=== PATIENT | female | born 1995 ===

== ENCOUNTER 2017-08-23 06:12 | Inpatient (IN) ==
[2017-08-23] MEDS ORDERED: CALCIUM CARBONATE Chewable 500mg TABLET PO PRN (06:18)
[2017-08-23] MEDS ORDERED: LIDOCAINE 1% (10mg/ml) 2mL INJ PF SDV ID PRN (06:18)
[2017-08-23] MEDS ORDERED: ACETAMINOPHEN 500 MG TABLET PO PRN (06:18)
[2017-08-23] MEDS ORDERED: MAG-AL + SIM ORAL LIQUID 30ml PO PRN (06:18)
[2017-08-23] MEDS ORDERED: CARBOPROST 250 MCG/ML INJECTION IM PRN (06:18)
[2017-08-23] MEDS ORDERED: METHYLERGONOVINE 0.2 MG/ML INJECTION IM PRN (06:18)
--- OUTSIDE RECORDS SUMMARY | 2017-08-23 06:18 | External Medical Summary | Continuity of Care Document ---
:1995 Author Organization [email or web address] Address [address] [place], [place] [id number] Phone Care Team Providers Name Role Phone Romana Maher MD Unavailable Unavailable Allergies, Adverse Reactions, Alerts Substance Reaction Severity Status No Known Drug Allergies Unknown Active Medications Medication Instructions Dosage Effective Dates Status Comments (start - stop) Diclegis 10 mg-10 mg take 1 tablet by oral - Active tablet,delayed route every day in release the morning, 1 tablet in the mid-afternoon, and 2 tablets at bedtime Gummy 400 - Active mcg-35 mg-25 mg-5 mg chewable tablet Problems Condition Effective Dates (start - stop) Clinical Status Vomiting of , unspecified Vomiting of , unspecified Other viral diseases complicating - , first trimester Encntr for suprvsn of normal first - preg, first trimester 9 weeks gestation of - Other viral diseases complicating - , first trimester Encntr for suprvsn of normal first - preg, first trimester 13 weeks gestation of - Oth viral diseases complicating - , second trimester Encntr for suprvsn of normal first - preg, second trimester 19 weeks gestation of - Encntr for suprvsn of normal first - preg, second trimester 18 weeks gestation of - Herpes Simplex Virus Active Procedures Procedure Date Unknown Results Test Name Date and Time Measure Units Reference Range Abnormal Flag Comments Unknown Advance Directives Directive Yes / No Effective Date File Name Unknown Encounters Encounter Practice Location Reason(s) Diagnoses Date Provider Care Team Description For Visit [facility] [place] viral Dec-1 Arlette Referring In Womens diseases 8-201 Kaykay. Provider: Gilberto SUTTON, complicating 7 [address] , Medical Arlette L, 1522, second Center [address] [place], trimesterEncntr Romel Castro, for suprvsn of 120, Center [id number], normal first Vance, Romel 120, [place] preg, second Vance PAUL, tel:[phone] [place], weeks gestation , [place]. [id number]. of tel: tel:[phone] Gary [place] Encntr for Dec-1 Suki Referring In Womens Ultrasound suprvsn of 8-201 Alondra. Provider: Gilberto SUTTON, normal first 7 700 [address] preg, second Medical Arlette L, 1522, [email or web address] Center [address], weeks gestation Romel Castro, of 120, Center , Vance [facility] 120, [place] Vance PAUL, tel:[phone] [place], , [place]. [id number]. tel: tel:[phone] Gary [place] Dec- Arlette Referring In Womens 4-201 Kaykay. Provider: Gilberto SUTTON, 7 700 [address] Medical Arlette L, 1522, Center [facility] Radha, Romel Castro, 120, Center [id number], Vance Romel 120, [place] Vance PAUL, tel:[phone] [place], , [place]. [id number]. tel: tel:[phone] Gary [place] Other viral Nov-1 Arlette Referring In Womens diseases 3-201 Kaykay. Provider: Gilberto SUTTON, complicating 7 [address] , first Medical Arlette L, 1522, trimesterEncntr Center [address] [place] [address], for suprvsn of Romel Castro, normal first 120, Center [id number], preg, first Vance Romel 120, US [id number] Vance PAUL, tel:[phone] weeks gestation [phone] [place], of , [place]. [id number]. tel: tel: [phone] [facility] [place] Other viral Oct- Arlette Referring In Womens diseases Kaykay. Provider: Health LESLEY, complicating 7 [address] , first Medical Arlette L, 1522, trimesterEncntr Center [address] [place] [address], for suprvsn of [facility], normal first 120, Center [id number], preg, first [place], [facility] 120, [place] trimester9 weeks Vance PAUL, tel: gestation of [phone] [place], , [place]. [id number]. tel: tel: [phone] [facility] [place] Vomiting of Sep-2 Sobbing In Womens , Laith. Health LESLEY, unspecified 7 700 [address] Medical [address], [place], [place], [address] , 120, [place] V[place], tel: [place], [address], [place]. tel: [phone] Gary [place] Vomiting of Sep-2 Suki In Womens , Alondra. Health LESLEY, unspecified 7 700 [address] Medical [address], [place], [facility], 120, [id number], [place], tel: [phone] , [place]. tel: [phone] Family History Family Member Diagnosis Age At Onset Mother Diabetes Maternal Grandmother Ovarian Cancer Maternal Grandmother Thyroid Disorder Maternal Grandmother Breast Cancer Mother Thyroid Disorder Maternal Grandfather Colon Cancer Immunizations Vaccine Date Status Comments Influenza, seasonal, injectable, completed Source: Other Provider preservative free, 3 yrs or older Payers Payer name Insurance type Covered alliance party ID Authorization(s) [facility] CI [id number] Social History Type Description Quantity Date Captured Alcohol Use Details No Caffeine Use Details Unknown Tobacco Use Status Smoking Status Former smoker Vital Signs Date / Height Weight BMI Pulse Blood Temperature Respiratory Body Head BMI Time: Rate Pressure Rate Surface Circumference percentile Area Unknown Chief Complaint And Reason For Visit Unknown Chief Complaint And Reason For Visit Reason For Referral Reason For Referral Unknown Plan Of Care Date Type Action Status Appointment DeangelotanyaRania BOOKED Future Order: Radiology Order Complete OB Ultrasound > 14 Ordered Weeks ([id number]) Date Type Problem Goal Intervention Status Start Date Unknown. History Of Present Illness Encounter Date Complaint History Of Present Illness This patient has no known history of present illness Functional Status Encounter Date Functional Assessment Cognitive Assessment Unknown Medications Administered Medication Instructions Dosage Effective Dates (start - stop) Status Comments Drug Treatment Unknown Instructions Date Instruction Additional Information HIV and other routine tests risk factors identified by history anticipated course of care nutrition and weight gain counseling, special diet toxoplasmosis precautions (cats / raw meat) sexual activity exercise indications for ultrasound influenza vaccine environmental / work hazards travel use of any medications (including supplements, vitamins, herbs, OTC drugs) domestic violence seat belt use childbirth classes / hospital facilities hospital registration genetic testing new ob handbook Zika virus assessment & precautions
--- OUTSIDE RECORDS SUMMARY | 2017-08-23 06:18 | External Medical Summary | Continuity of Care Document ---
:1993 Author Organization [facility] Address [address] [place], [place] [phone] Phone Care Team Providers Name Role Phone [...] of , unspecified Vomiting of , unspecified Procedures Procedure Date Office/outpatient visit,[facility] Results Test Name Date and Time Measure Units Reference Range Abnormal Flag Comments Unknown Advance Directives Directive Yes / No Effective Date File Name Unknown Encounters Encounter Practice Location Reason(s) Diagnoses Date Provider Care Team Description For Visit Members [facility] [place] Vomiting of Sobbing [facility] , Laith. PA, [address] unspecified [address], [place], [place], Center [id number], [place] [address], tel:[phone] [address], [address] [place] [address], [address], [place]. tel:[phone] Office/outpati [facility] [place] nausea and Vomiting of Suki ent visit,[facility], [facility] vomiting , -2016 Alondra. lanette PA, [address] with unspecified [address], [place], [place], (chief Center , [id number], complaint) Romel 120, tel:[phone] [address], [id number], . tel:[phone] Family History Family Member Diagnosis Age At Onset Mother Diabetes Maternal Grandmother Ovarian Cancer Maternal Grandmother Thyroid Disorder Maternal Grandmother Breast Cancer Mother Thyroid Disorder Maternal Grandfather Colon Cancer Immunizations Vaccine Date Status Comments Influenza, seasonal, injectable, completed Source: Other Provider preservative free, 3 yrs or older Payers Payer name Insurance type Covered libertarian ID Authorization(s) [facility] [id number] Social History Type Description Quantity Date Captured Alcohol Use Details Caffeine Use Details combo Tobacco Use Status Never smoked tobacco Smoking Status Former smoker Non-Smoking Tobacco Use : No Details Available : No Details Available Details Vital Signs Date / Height Weight BMI Pulse Blood Temperature Respiratory Body Head BMI Time: Rate Pressure Rate Surface Circumference percentile Area 67.00 245.10 38.3 74 124/77 2017 in lbs 9 /min mm[Hg] 9:38 kg/m AM eter (2) Chief Complaint And Reason For Visit Unknown Chief Complaint And Reason For Visit Reason For Referral Reason For Referral Unknown Plan Of Care Date Type Action Status Appointment Raina Kolb BOOKED Date Type Problem Goal Intervention Status Start Date Unknown. History Of Present Illness Encounter Date Complaint History Of Present Illness nausea and vomiting with Pt reports she vomits approximately 4x/day and gags in between. Able to keep food down in between. Doesn't feel dehydrated. Hasn't lost weight. LMP 7/3. + preg test 2 weeks ago. Periods very irregular-every 1-4 months. Faint spotting x 1 last week. Plans to see Dr Chong for . Also had lots of N/V in her 1st 2 pregnancies. Functional Status Encounter Date Functional Assessment Cognitive Assessment Unknown Medications Administered Medication Instructions Dosage Effective Dates (start - stop) Status Comments Drug Treatment Unknown Instructions Date Instruction Additional Information Unknown
--- OUTSIDE RECORDS SUMMARY | 2017-08-23 06:18 | External Medical Summary | Continuity of Care Document ---
:1993 Author Organization [facility] Address [address] [place], [place] [phone] Phone Care Team Providers Name Role Phone [...] Effective Dates (start - stop) Clinical Status Encntr for suprvsn of normal first - preg, second trimester 18 weeks gestation of - Vomiting of , unspecified Vomiting of , [...] second trimester 19 weeks gestation of - Herpes Simplex Virus Active Procedures Procedure Date Ultrasound exam of preg uterus, complete Results Test Name Date and Time Measure Units Reference Range Abnormal Flag Comments Unknown Advance Directives Directive Yes / No Effective Date File Name Unknown Encounters Encounter Practice Location Reason(s) Diagnoses Date Provider Care Team Description For Visit Members [facility] [place] Oth viral Dec-1 Arlette Referring In Womens diseases 8-201 Kaykay. Provider: Gilberto SUTTON, complicating 7 [address] , Medical Arlette L, 1522, second Center 700 [place], trimesterEncntr Romel Castro, for suprvsn of 120, Center [id number], normal first Romel [place] 120, [place] preg, second Vance PAUL, tel:[phone] [id number] [phone] [place], weeks gestation , [place]. [id number]. of tel: tel:[phone] [facility] Encfritz for Dec-1 Suki Referring In Womens Ultrasound suprvsn of 8-201 Alondra. Provider: Gilberto SUTTON, normal first 7 700 [address] preg, second Medical Arlette L, 1522, Center 700 [place], weeks gestation Romel Castro, of 120, Center [id number], Vance [facility] 120, [place] Vance PAUL, tel:[phone] [place], , [place]. [id number]. tel: tel:[phone] Gary [place] Other viral Nov-1 Arlette Referring In Womens diseases 3-201 Kaykay. Provider: Gilberto SUTTON, complicating 7 700 [address] , first Medical Arlette L, 1522, trimesterEncntr Center [address] [place] [address], for suprvsn of Romel Castro, normal first 120, Center [id number], preg, first Vance [facility] 120, [place] [id number] Vance PAUL, tel:[phone] weeks gestation [phone] [place], of , [place]. [id number]. tel: tel:[phone] Gary [place] Other viral Oct-1 Arlette Referring In Womens diseases 7-201 Kaykay. Provider: Gilberto SUTTON, complicating 7 700 [address] , first Medical Arlette L, 1522, trimesterEncntr Center [address] [place] [address], for suprvsn of Romel Castro, normal first 120, Center [id number], preg, first [place], [facility] 120, [place] trimester9 weeks Vance PAUL, tel: gestation of [phone] [place], , [place]. [id number]. tel: tel: [phone] [facility] Vomiting of Sep-2 Sobbing In Womens , Laith. Health [place], unspecified 7 700 [address] Medical [address], [facility], [place], [address] [id number], 120, [place], [place]: [place], [address], [place]. tel: [phone] [facility] [place] Vomiting of Sep-2 Suki In Womens , Alondra. Health [place], unspecified 7 700 PO [address] Medical [address], [place] Radha, , Romel [place], 120, [id number], [place], [place], tel: [phone] , [place]. tel: [phone] Family History Family Member Diagnosis Age At Onset Mother Diabetes Maternal Grandmother Ovarian Cancer Maternal Grandmother Thyroid Disorder Maternal Grandmother Breast Cancer Mother Thyroid Disorder Maternal Grandfather Colon Cancer Immunizations Vaccine Date Status Comments Influenza, seasonal, injectable, completed Source: Other Provider preservative free, 3 yrs or older Payers Payer name Insurance type Covered green party ID Authorization(s) [facility] CI [id number] Social History Type Description Quantity Date Captured Unknown Vital Signs Date / Height Weight BMI Pulse Blood Temperature Respiratory Body Head BMI Time: Rate Pressure Rate Surface Circumference percentile Area Unknown Chief Complaint And Reason For Visit Unknown Chief Complaint And Reason For Visit Reason For Referral Reason For Referral Unknown Plan Of Care Date Type Action Status Appointment Raina Kolb BOOKED Future Order: Radiology Order Complete OB Ultrasound > 14 Ordered Weeks ([id number]) Date Type Problem Goal Intervention Status Start [...]
--- OUTSIDE RECORDS SUMMARY | 2017-08-23 06:18 | External Medical Summary | Continuity of Care Document ---
:1993 Author Organization [facility] Address [address] [place], [place] [phone] Phone Care Team Providers Name Role Phone [...] stop) Clinical Status Vomiting of , unspecified Procedures Procedure Date Office/outpatient visit,[facility] Results Test Name Date and Time Measure Units Reference Range Abnormal Flag Comments Unknown Advance Directives Directive Yes / No Effective Date File Name Unknown Encounters Encounter Practice Location Reason(s) Diagnoses Date Provider Care Team Description For Visit Members Office/outpati [facility] [place] N/V with Vomiting of Sobbing ent visit,[facility] , -2016 Laith. lanette SUTTNO, [address] (chief unspecified [address], complaint) [place] [id number], [place] [address], tel:[phone] [address], [address] [place], [address], [place]. tel:[phone] [facility] [place] [facility] -2016 Alondra. LESLEY, [address], [place], [place], [address], [id number], [place] Romel 120, tel:[phone] [address], [id number], [place]. tel:[phone] Family History Family Member Diagnosis Age At Onset Mother Diabetes Maternal Grandmother Ovarian Cancer Maternal Grandmother Thyroid Disorder Maternal Grandmother Breast Cancer Mother Thyroid Disorder Maternal Grandfather Colon Cancer Immunizations Vaccine Date Status Comments Influenza, seasonal, injectable, completed Source: Other Provider preservative free, 3 yrs or older Payers Payer name Insurance type Covered alliance party ID Authorization(s) [facility] [id number] Social History Type Description Quantity Date Captured Alcohol Use Details Caffeine Use Details combo Tobacco Use Status Never smoked tobacco Smoking Status Former smoker Vital Signs Date / Height Weight BMI Pulse Blood Temperature Respiratory Body Head BMI Time: Rate Pressure Rate Surface Circumference percentile Area Unknown Chief Complaint And Reason For Visit Most recent encounter only, dated '01/16/2017 09:55'. N/V with (chief complaint). Description: Pt here with c/o of N/V with . Vomits about 4 x /day and gags in between. Is able to keep food down in between and hasn't lost weight. LMP 7/3, but really not sure and periods very irregular- usually ever 1-4 months. Had positive pregtest 2 weeks ago. Very faint spotting x 1 last week. Had pelvic pain once 2 weeks ago, none since. Plans to see Dr Chong with . Reason For Referral Reason For Referral Unknown Plan Of Care Date Type Action Status Appointment Raina Kolb BOOKED Date Type Problem Goal Intervention Status Start Date Unknown. History Of Present Illness Encounter Date Complaint History Of Present Illness N/V with Pt here with c/o of N/V with . Vomits about 4 x /day and gags in between. Is able to keep food down in between and hasn't lost weight. LMP 7/3, but really not sure and periods very irregular- usually ever 1-4 months. Had positive preg test 2 weeks ago. Very faint spotting x 1 last week. Had pelvic pain once 2 weeks ago, none since. Plans to see Dr Chong with . Functional Status Encounter Date Functional Assessment Cognitive Assessment Unknown Medications Administered Medication Instructions Dosage Effective Dates (start - stop) Status Comments Drug Treatment Unknown Instructions Date Instruction Additional Information Unknown
--- OUTSIDE RECORDS SUMMARY | 2017-08-23 06:18 | External Medical Summary | Continuity of Care Document ---
:1993 Author Organization [facility] Address [address] [place], [place] [phone] Phone Care Team Providers Name Role Phone [...] of , unspecified Procedures Procedure Date Office/outpatient visit,[facility] OB US < 14 WKS, SINGLE FETUS Office/outpatient visit,[facility] Results Test Name Date and Time Measure Units Reference Range Abnormal Flag Comments Unknown Advance Directives Directive Yes / No Effective Date File Name Unknown Encounters Encounter Practice Location Reason(s) Diagnoses Date Provider Care Team Description For Visit Members Office/outpati [facility] [place] N/V with Vomiting of Sep-25 Sobbing ent visit,[facility] , Laith. lanette SUTTON [address] (chief unspecified [phone], complaint) [facility] [id number], [place] [address], tel:[phone] [address], [address] [place], [address], [place]. tel:[phone] [facility] [place] Vomiting of Sep-25 Suki [facility] , Alondra. LESLEY [address] unspecified [address], [facility] [address] [id number], Romel 120, tel:[phone] Genoveva [place], [id number], [place]. tel:[phone] Family History Family Member Diagnosis Age At Onset Mother Diabetes Maternal Grandmother Ovarian Cancer Maternal Grandmother Thyroid Disorder Maternal Grandmother Breast Cancer Mother Thyroid Disorder Maternal Grandfather Colon Cancer Immunizations Vaccine Date Status Comments Influenza, seasonal, injectable, completed Source: Other Provider preservative free, 3 yrs or older Payers Payer name Insurance type Covered alliance party ID Authorization(s) [facility] CI [id number] Social History Type Description Quantity Date Captured [...] Plans to see Dr Chong with . Had lots of N/V with 1st 2 pregnancies as well. Reason For Referral Reason For Referral Unknown [...] Plans to see Dr Chong with . Had lots of N/V with 1st 2 pregnancies as well. Functional Status Encounter Date Functional Assessment Cognitive Assessment Unknown Medications Administered Medication Instructions Dosage Effective Dates (start - stop) Status Comments Drug Treatment Unknown Instructions Date Instruction Additional Information Unknown
--- OUTSIDE RECORDS SUMMARY | 2017-08-23 06:18 | External Medical Summary | Continuity of Care Document ---
:1995 Author Organization [facility] Address [address] [place], [place] [address] Phone Care Team Providers Name Role Phone Romana Maher MD Unavailable Unavailable Allergies, Adverse Reactions, Alerts Substance Reaction Severity Status No Known Drug Allergies Unknown Active Medications Medication Instructions Dosage Effective Dates Status Comments (start - stop) acyclovir 400 mg take 1 tablet by ORAL 400 MG - Active tablet route 3 times every day Diclegis 10 mg-10 mg take 1 tablet by oral - Active tablet,delayed route every day in release the morning, 1 tablet in the mid-afternoon, and 2 tablets at bedtime Gummy 400 - Active mcg-35 mg-25 mg-5 mg chewable tablet Tylenol 325 mg tablet take 3 tablet by ORAL 975 MG - Active route every 4 days as needed Problems Condition Effective Dates (start - stop) Clinical Status Encounter for suprvsn of normal - , third trimester 30 weeks gestation of - Vomiting of , unspecified Vomiting of , unspecified Encounter for suprvsn of normal - , third trimester 32 weeks gestation of - Other malformation of placenta, second - trimester Encounter for suprvsn of normal - , second trimester 24 weeks gestation of - Other malformation of placenta, third - trimester Other antepartum hemorrhage, third - trimester 28 weeks gestation of - Other viral diseases [...] second trimester 18 weeks gestation of - Encounter for suprvsn of normal - , third trimester 28 weeks gestation of - Herpes Simplex Virus Active Procedures Procedure Date OB Visit No Charge Results Test Name Date and Time Measure Units Reference Range Abnormal Flag Comments Unknown Advance Directives Directive Yes / No Effective Date File Name Unknown Encounters Encounter Practice Location Reason(s) Diagnoses Date Provider Care Team Description For Visit Members Gary [place] Encounter for Jun- Arlette Referring In Women suprvsn of normal 4-201 Kaykay. Provider: Health LESLEY, , third 8 700 Kaykay [address] [email or web address] weeks Medical Arlette L, 1522, gestation of Center [facility] [place], [facility], 120, [place] [id number], [facility] 120, Vance PAUL, tel:[phone] [place] [address] , . [id number]. tel: tel:[phone] Gary [place] Encounter for May- Arlette Referring In Womens suprvsn of normal 8-201 Kaykay. Provider: Health LESLEY, , third 8 700 Kaykay [address] [email or web address] weeks Medical Arlette L, 1522, gestation of Center 700 [place], Romel Castro [place], 120, [place] [id number], [facility] 120, [place] Vance [place], tel:[phone] [place] [address] , . [id number]. tel: tel:[phone] Gary [place] Encounter for May- Arlette Referring In Womens suprvsn of normal 4-201 Kaykay. Provider: Health LESELY, , third 8 700 Kaykay [address] [email or web address] weeks Medical Arlette L, 1522, gestation of Center [address] [place] [address], Romel Castro, 120, Center [id number], [place], [facility] 120, [place] Vance [place], tel:[phone] [place], , [place]. [id number]. 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 Provider: Health LESLEY, placenta, third 8 700 Kaykay PO Box trimesterOther Medical Arlette L, 1522, antepartum Center [address] [place] [address], hemorrhage, third Romel Castro, [email or web address] weeks 120, Center [id number], gestation of [place], [facility] 120, [place] RIVance, tel:[phone] [place], , [place]. [id number]. tel: tel:[phone] [facility] Other Jorge L- Arlette Referring In Womens malformation of 7-201 Kaykay. Provider: Gilberto SUTTON, placenta, second 8 700 Kaykay PO Box trimesterEncounte Medical Arlette L, 1522, r for suprvsn of Center [address] [place] [address], normal , Romel Castro, second 120, Center [id number], [email or web address] weeks [place], [facility] 120, [place] gestation of Vance PAUL, tel:+ [phone] [place], , [place]. [id number]. tel: tel:[phone] [facility] Oth viral Dec- Arlette Referring In Womens diseases 8-201 Kaykay. Provider: Gilberto SUTTON, complicating 7 700 Kaykay PO Box , second Medical Arlette L, 1522, trimesterEncntr Center [address] [place] [address], for suprvsn of Romel Castro, normal first 120, Center [id number], preg, second [place], [facility] 120, [place] [email or web address] weeks Vance PAUL, tel:[phone] gestation of [phone] [place], , [place]. [id number]. tel: tel:[phone] [facility] Encntr for Dec-1 Suki Referring In Womens Ultrasound suprvsn of normal 8-201 Alondra. Provider: Health LESLEY, first preg, 7 700 Kaykay PO Box second Medical Arlette L, 1522, [email or web address] weeks Center [address] [place] [address], gestation of Romel Castro, 120, Center [id number], Vance, [facility] 120, [place] Vance PAUL, tel:[phone] [place], , [place]. [id number]. tel: tel:[phone] [facility] Other viral Nov-1 Arlette Referring In Womens diseases 3-201 Kaykay. Provider: Gilberto SUTTON, complicating 7 700 Kaykay PO Box , first Medical Arlette L, 1522, trimesterEncntr Center [address] [place] [address], for suprvsn of Romel Castro, normal first 120, Center [id number], preg, first Vance [facility] 120, [place] [email or web address] weeks Vance PAUL, tel:+ gestation of [phone] [place], , [place]. [id number]. tel: tel:[phone] [facility] Other viral Oct-1 Arlette Referring In Womens diseases 7-201 Kaykay. Provider: Gilberto SUTTON, complicating 7 700 Kaykay PO Box , first Medical Arlette L, 1522, trimesterEncntr Center [address] [place] [address], for suprvsn of Romel Castro, normal first 120, Center [id number], preg, first Vance, [facility] 120, [place] trimester9 weeks Vance PAUL, tel:+[phone] gestation of [phone] [place], , [place]. [id number]. tel: tel:[phone] [facility] Vomiting of Sep-2 Sobbing In Womens , 5-201 Laith. Health LESLEY, unspecified 7 700 [address] Medical 1522, [facility], [place], [address] [id number], 120, [place] Vance, tel:+ [place], [phone] [place] [address], [place]. tel: [phone] [facility] [place] Vomiting of Sep-2 Suki In Womens , 5-201 Alondra. Health [place], unspecified 7 700 PO [place] [facility] [address], [place] [address] Radha, [facility] [place], 120, [id number], [place], tel: [phone] , [place]. tel: [phone] Family History Family Member Diagnosis Age At Onset Mother Diabetes Maternal Grandmother Ovarian Cancer Maternal Grandmother Thyroid Disorder Maternal Grandmother Breast Cancer Mother Thyroid Disorder Maternal Grandfather Colon Cancer Immunizations Vaccine Date Status Comments Influenza, seasonal, injectable, completed Source: Other Provider preservative free, 3 yrs or older Payers Payer name Insurance type Covered republican ID Authorization(s) [facility] [id number] [employer] [place] [employer] - Medicaid [place] [id number] Social History Type Description Quantity Date Captured [...] Of Care Date Type Action Status Appointment Carissa Kolb BOOKED Future Order: Radiology Order Ultrasound OB Follow-up ([id number]) Ordered Future Order: Radiology Order Complete OB Ultrasound > 14 Ordered Weeks ([id number]) Date Type Problem Goal Intervention Status Start [...]
--- OUTSIDE RECORDS SUMMARY | 2017-08-23 06:18 | External Medical Summary | Continuity of Care Document ---
:1993 Author Organization [facility] Address [address] [place], [place] [id number] Phone Care Team Providers Name Role Phone [...] of , unspecified Procedures Procedure Date Office/outpatient visit,[facility] Results Test Name Date and Time Measure Units Reference Range Abnormal Flag Comments Unknown Advance Directives Directive Yes / No Effective Date File Name Unknown Encounters Encounter Practice Location Reason(s) Diagnoses Date Provider Care Team Description For Visit Members [facility] Vomiting of Sobbing [facility] , Laith. [place], [address] unspecified [address] 1522, [place], [place], Center [id number], [place] [address], tel:[phone] [address], [address] [place] [address], [address], [place]. tel:[phone] Office/outpati [facility] [place] nausea and Vomiting of Suki ent visit,[facility], [facility] vomiting , -2016 Alondra. lanette [place], [address] with unspecified 700 1522, [place], [place], (chief Center , [id number], complaint) Romel 120, tel:[phone], [id number], . tel:[phone] Family History Family Member Diagnosis Age At Onset Mother Diabetes Maternal Grandmother Ovarian Cancer Maternal Grandmother Thyroid Disorder Maternal Grandmother Breast Cancer Mother Thyroid Disorder Maternal Grandfather Colon Cancer Immunizations Vaccine Date Status Comments Influenza, seasonal, injectable, completed Source: Other Provider preservative free, 3 yrs or older Payers Payer name Insurance type Covered alliance party ID Authorization(s) [facility] [id number] Social History Type Description Quantity Date Captured [...] . Also had lots of N/V in he r1st 2 pregnancies. Functional Status Encounter Date Functional Assessment Cognitive Assessment Unknown Medications Administered Medication Instructions Dosage Effective Dates (start - stop) Status Comments Drug Treatment Unknown Instructions Date Instruction Additional Information Unknown
--- OUTSIDE RECORDS SUMMARY | 2017-08-23 06:18 | External Medical Summary | Continuity of Care Document ---
:1993 Author Organization [facility] Address [address] [place], [place] [address] Phone Care Team Providers Name Role Phone Romana Maher MD Unavailable Unavailable Allergies, Adverse Reactions, Alerts Substance Reaction Severity Status No Known Drug Allergies Unknown Active Medications Medication Instructions Dosage Effective Dates Status Comments (start - stop) Diclegis 10 mg-10 take 1 tablet by - Active mg tablet,delayed oral route every release day in the morning, 1 tablet in the mid-afternoon, and 2 tablets at bedtime Gummy 400 - Active mcg-35 mg-25 mg-5 mg chewable tablet Tamiflu 75 mg take 1 capsule by 75 MG - No Longer capsule oral route 2 times Active every day Problems Condition Effective Dates (start - stop) Clinical Status Vomiting of , unspecified Vomiting of , unspecified Other malformation of placenta, second - trimester [...] For Visit Members Gary [place] Encounter for May- Arlette Referring In Womens suprvsn of normal 4-201 Kaykay. Provider: Gilberto SUTTON, , third 8 700 Kaykay [address] [email or web address] weeks Medical Arlette L, 1522, gestation of [address], [address] [facility] Kriss [place], 120, [place] , [facility], [place] Vance [place], tel:[phone] [place], , [place]. [id number]. tel: tel: [phone] Gary [place] Other May- Arlette Referring In Womens Ultrasound malformation of 4-201 Kaykay. Provider: Gilberto SUTTON, placenta, third 8 700 Kaykay PO Box trimesterOther Medical Arlette L, 1522, antepartum Center [address] [place] [address], hemorrhage, third Dr [facility] Kriss [place], [email or web address] weeks 120, [place] , gestation of [facility] 120, [place] Vance PAUL, tel:[phone] [place], , [place]. [id number]. tel: tel: [phone] Gary [place] Jorge L-3 Arlette In Womens 0-201 Kaykay. Gilberto SUTTON, 8 700 PO [address] Medical 1522, Center Rad[place], [facility] [place], 120, [id number], [place], tel:[phone] , [place]. tel: [phone] Gary [place] Apr-1 Arlette Referring In Womens malformation of 7-201 Kaykay. Provider: Gilberto SUTTON, placenta, second 8 700 Kaykay PO Box trimesterEncounte Medical Arlette L, 1522, r for suprvsn of Center [address] [place] [address], normal , Romel Castro, second 120, Center , [email or web address] weeks Vance Romel 120, [place] gestation of Vance PAUL, tel:+ [phone] [place], , [place]. [id number]. tel: tel:[phone] Gary [place] Oth viral Dec-1 Arlette Referring In Womens diseases 8-201 Kaykay. Provider: Gilberto SUTTON, complicating 7 700 Kaykay PO Box , second Medical Arlette L, 1522, trimesterEncntr Center [address] [place] [address], for suprvsn of Romel Castro, normal first 120, Center , preg, second [place], Romel 120, [place] [email or web address] weeks Vance PAUL, tel: gestation of [phone] [place], , [place]. [id number]. tel: tel:[phone] Gary [place] Encntr for Dec-1 Suki Referring In Womens Ultrasound suprvsn of normal 8-201 Alondra. Provider: Gilberto SUTTON, first preg, 7 700 [place] PO Box second Medical Arlette L, 1522, [email or web address] weeks Center [address] [place] [address], gestation of Romel Castro, 120, Center [id number], [place], Romel 120, [place] Vance PAUL, tel: [phone] [place], , [place]. [id number]. tel: tel:[phone] Gary [place] Other viral Nov-1 Arlette Referring In Womens diseases 3-201 Kaykay. Provider: Gilberto SUTTON, complicating 7 700 Kaykay PO Box , first Medical Arlette L, 1522, trimesterEncntr Center [address] [place] [address], for suprvsn of Romel Castro, normal first 120, Center [id number], preg, first [place] Romel 120, [place] [email or web address] weeks Vance PAUL, tel:+[phone] gestation of [place], , [place]. [id number]. tel: tel: [phone] [facility] Other viral Oct- Arlette Referring In Womens diseases - Kaykay. Provider: Gilberto SUTTON, complicating 7 700 Kaykay PO Box , first Medical Arlette L, 1522, trimesterEncntr Center [address] [place] [address], for suprvsn of , [facility], normal first 120, [place] [id number], preg, first [place], [facility] 120, [place] trimester9 weeks Vance PAUL, tel: gestation of [phone] [place], , [place]. [id number]. tel: tel: [phone] [facility] Vomiting of Sep-2 Sobbing In Womens , - Laith. Gilberto SUTTON, unspecified 7 700 [address] Medical 1522, [place], [place], Suite , 120, [place], tel: [place], [address], [place]. tel: [phone] [facility] Vomiting of Sep-2 Suki In Womens , - Alondra. Gilberto SUTTON, unspecified [address] [facility] 1522, [place] Radha, [facility], 120, [id number], [place], [facility], tel: [phone] , [place]. tel: [phone] Family History Family Member Diagnosis Age At Onset Mother Diabetes Maternal Grandmother Ovarian Cancer Maternal Grandmother Thyroid Disorder Maternal Grandmother Breast Cancer Mother Thyroid Disorder Maternal Grandfather Colon Cancer Immunizations Vaccine Date Status Comments Influenza, seasonal, injectable, completed Source: Other Provider preservative free, 3 yrs or older Payers Payer name Insurance type Covered constitution party ID Authorization(s) [facility] [id number] [employer] [place] [employer] - Medicaid MC [id number] Social History Type Description Quantity Date Captured Unknown Vital Signs Date / Height Weight BMI Pulse Blood Temperature Respiratory Body Head BMI Time: Rate Pressure Rate Surface Circumference percentile Area Unknown Chief Complaint And Reason For Visit Unknown Chief Complaint And Reason For Visit Reason For Referral Reason For Referral Unknown Plan Of Care Date Type Action Status Feb-28-2018 Appointment Carissa Kolb BOOKED Appointment Carissa Kolb BOOKED Appointment Carissa Kolb BOOKED Future Order: Radiology Order Ultrasound OB Follow-up ([id number]) Ordered Future Order: Radiology Order Complete OB Ultrasound > 14 Ordered Weeks ([id number]) Date Type Problem Goal Intervention Status Start [...]
--- OUTSIDE RECORDS SUMMARY | 2017-08-23 06:19 | External Medical Summary | Continuity of Care Document ---
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 Panel Description: OBSTETRIC PANEL WHITE BLOOD CELL 8.0 Thousand/uL 3.8-10.8 N COUNT 11:23:00 RED BLOOD CELL 4.67 Million/uL 3.80-5.10 N COUNT 11:23:00 HEMOGLOBIN 12.7 g/dL 11.7-15.5 N 11:23:00 HEMATOCRIT 38.5 % 35.0-45.0 N 11:23:00 MCV 82.4 fL 80.0-100.0 N 11:23:00 MCH 27.2 pg 27.0-33.0 N 11:23:00 MCHC 33.0 g/dL 32.0-36.0 N 11:23:00 RDW 13.4 % 11.0-15.0 N 11:23:00 PLATELET COUNT 138 Thousand/uL 140-400 L 11:23:00 MPV 12.0 fL 7.5-12.5 N 11:23:00 ABSOLUTE 5720 cells/uL 0445-4831 N NEUTROPHILS 11:23:00 ABSOLUTE 1664 cells/uL 850-3900 N LYMPHOCYTES 11:23:00 ABSOLUTE 528 cells/uL 200-950 N MONOCYTES 11:23:00 ABSOLUTE 56 cells/uL 15-500 N EOSINOPHILS 11:23:00 ABSOLUTE 32 cells/uL 0-200 N BASOPHILS 11:23:00 NEUTROPHILS 71.5 % N 11:23:00 LYMPHOCYTES 20.8 % N 11:23:00 MONOCYTES 6.6 % N 11:23:00 EOSINOPHILS 0.7 % N 11:23:00 BASOPHILS 0.4 % N 11:23:00 ANTIBODY SCREEN, NO ANTIBODIES N RBC W/REFL ID, 11:23:00 DETECTED Reference range TITER AND AG No antibodies detected This assay is a screening test for the detection of red blood cell antibodies. The test is not to be used for pretransfusion screening or for the medical management of an alloimmunized . ABO GROUP A 11:23:00 RH TYPE RH(D) 11:23:00 POSITIVE RPR (DX) W/REFL NON-REACTIVE NON-REACTIV N TITER AND 11:23:00 E CONFIRMATORY TESTING HEPATITIS B NON-REACTIVE NON-REACTIV N SURFACE ANTIGEN 11:23:00 E RUBELLA ANTIBODY 3.34 index N Index (IGG) 11:23:00 Interpretation ----- <0.90 Not consistent with Immunity 0.90-0.99 Equivocal > or=1.00 Consistent with Immunity The presence of rubella IgG antibody suggests immunization or past or current infection withrubella virus.[place] [address]Wizhteo r: GARRISON STEPHENSON DO,MPH Panel Description: HIV 1/2 ANTIGEN/ANTIBODY,FOURTH GENERATION W/RFL HIV NON-REACTIVE NON-REACTIVE N HIV-1 antigen and HIV-1/HIV- 2 antibodies were AG/AB, 11:23:00 notdetected. There is no laboratory evidence of 4TH GEN HIVinfection. PLEASE NOTE: This information has been disclosed toyou from records whose confidentiality may beprotected by state law. If your state requires suchprotection, then the state law prohibits you frommaking any further disclosure of the informationwithout the specific written consent of the personto whom it pertains, or as otherwise permitted by law.A general authorization for the release of medical orother information is NOT sufficient for this purpose. For additional information please refer tohttp://education.Chef/faq/ZTF348(This link is being provided for informational/educational purposes only.) The performance of this assay has not been clinicallyvalidated in patients less than 2 years old. REPORT COMMENT:FASTING:NOTest performed at [facility] [place] [address]Xieezeyh: GARRISON STEPHENSON DO,MPH Panel Description: Bacteria identified in Urine by Culture CULTURE, URINE, SEE NOTE CULTURE, URINE, ROUTINE MICRO ROUTINE 11:32:00 NUMBER: [id number] TEST STATUS: FINAL SPECIMEN SOURCE: URINE SPECIMEN QUALITY: ADEQUATE RESULT: No GrowthREPORT COMMENT:RFASTING:UNKNOWNTest performed [place] [address]Rcjmoolw: GARRISON STEPHENSON DO,MPH Panel Description: CHLAMYDIA/N. GONORRHOEAE RNA, TMA CHLAMYDIA NOT DETECTED NOT DETECTED N TRACHOMATIS RNA, 11:39:00 TMA NEISSERIA NOT DETECTED NOT DETECTED N GONORRHOEAE RNA, 11:39:00 TMA [id number] SEE NOTE This test was 11:39:00 performed using the [employer]/Ownza COMBO2 Assay([employer] The analytical performance characteristics of this assay, when used to test SurePath specimens havebeen determined by [employer]. REPORT COMMENT:FASTING:UNKNO WNTest performed at [facility] [address] [address]Gbpummxo: GARRISON STEPHENSON DO,MPH Advance Directives Directive Yes / No Effective Date File Name Unknown Encounters Encounter Practice Location Reason(s) Diagnoses Date Provider Care Team Description For Visit Members [facility] Other viral [facility] Referring In Womens diseases Kaykay. Provider: Health LESLEY, complicating 7 700 Kaykay [address], , first Medical Arlette , [place], [place], trimesterEncntr Center 700 [id number], for suprvsn of Dr [facility] normal first 120, [facility] tel:[phone], first [facility] 120, [address] trimester9 weeks [place], gestation [place] [id number] [place], , [place]. [id number]. tel: tel:[phone] [facility] Vomiting of Sep-2 Sobbing In Womens , Laith. Health [place], unspecified 7 700 [address], [place], [place], Center [id number], [facility], Suite tel:[phone], [address] [facility] [address], . tel: [phone] [facility] Vomiting of Sep-2 Suki In Womens , Alondra. Health LESLEY, unspecified 7 700 [address], [place], [place], [place] [id number], Dr [facility] 120, tel:[phone], [id number] , . tel:[phone] Family History Family Member Diagnosis Age At Onset Mother Diabetes Maternal Grandmother Ovarian Cancer Maternal Grandmother Thyroid Disorder Maternal Grandmother Breast Cancer Mother Thyroid Disorder Maternal Grandfather Colon Cancer Immunizations Vaccine Date Status Comments Influenza, seasonal, injectable, completed Source: Other Provider preservative free, 3 yrs or older Payers Payer name Insurance type Covered democrat ID Authorization(s) [facility] [id number] Social History Type Description Quantity Date Captured Alcohol Use Details No Caffeine Use Details combo Tobacco Use Status Never smoked tobacco Smoking Status Former smoker Non-Smoking Tobacco Use : No Details Available : No Details Available Details Vital Signs Date / Height Weight BMI Pulse Blood Temperature Respiratory Body Head BMI Time: Rate Pressure Rate Surface Circumference percentile Area 247.20 38.7 133/79 lbs 1 mm[Hg] 10:29 kg/m AM eter (2) Chief Complaint And [...]
--- OUTSIDE RECORDS SUMMARY | 2017-08-23 06:19 | External Medical Summary | Continuity of Care Document ---
:1993 Author Organization [facility] Address [address] [place], [place] [id number] Phone Care Team Providers Name Role Phone [...] Team Description For Visit Members [facility] [place] Dec-2 Arlette In Womens 0-201 Kaykay. Health LES[place], 7 700 [address] Medical [address], Center Radha, Romel Castro [place], 120, [id number], [place], [place], tel:[phone] , [place]. tel: [phone] Gary [place] Oth viral Dec-1 Arlette Referring In Womens diseases 8-201 Kaykay. Provider: Gilberto SUTTON, complicating 7 700 Kaykay [address] , Medical Arlette L, 1522, second Center [address] [place], trimesterEncntr Dr [facility], for suprvsn of 120, Center [id number], normal first Romel [place] 120, [place] preg, second [place] PAUL, tel:[phone] [id number] [place], weeks gestation , [place]. [id number]. of tel: tel: [phone] Gary Ewing for Dec-1 Suki Referring In Womens Ultrasound suprvsn of 8-201 Alondra. Provider: Gilberto SUTTON, normal first 7 700 Kaykay PO Box preg, second Medical Arlette L, 1522, [email or web address] [place] [address], weeks gestation Dr [facility] Kriss PAUL, of 120, Center [id number], [place] [facility] 120, [place] PAUL, tel:[phone] [place], , [place]. [id number]. tel: tel: [phone] Gary [place] Other viral Nov-1 Arlette Referring In Womens diseases 3-201 Kaykay. Provider: Gilberto SUTTON, complicating 7 700 Kaykay [address] , first Medical Arlette L, 1522, trimesterEncntr Center [address] [place] [address], for suprvsn of Romel Castro, normal first 120, Center [id number], preg, first Romel [place] 120, [place] [email or web address] [place] PAUL, tel:+[phone] weeks gestation [phone] [place], of , [place]. [id number]. tel: tel:[phone] Gary [place] Other viral Oct-1 Arlette Referring In Womens diseases Kaykay. Provider: Health LESLEY, complicating 7 700 Kaykay [address] , first Medical Arlette L, 1522, trimesterEncntr Center [address] [place] [address], [facility] suprvsn of , [facility], normal first 120, Center [id number], preg, first [place], Romel 120, [place] trimester9 weeks [place], tel:+[phone] gestation of [place], , [place]. [id number]. tel: tel:[phone] Associates [place] Vomiting of Sep-2 Sobbing In Womens , Laith. Gilberto SUTTON, unspecified 7 700 PO Box [facility] 1522, [facility], [place], [place], [id number], 120, [place], tel:+[phone] [place], [address], [place]. tel: [phone] Associates [place] Vomiting of Sep-2 Suki In Womens , Alondra. Gilberto SUTTON, unspecified 7 700 [address] [facility] 1522, [place] Radha, , [facility] [place], 120, [id number], [place], tel: [phone] , [place]. tel: [phone] Family History Family Member Diagnosis Age At Onset Mother Diabetes Maternal Grandmother Ovarian Cancer Maternal Grandmother Thyroid Disorder Maternal Grandmother Breast Cancer Mother Thyroid Disorder Maternal Grandfather Colon Cancer Immunizations Vaccine Date Status Comments Influenza, seasonal, injectable, completed Source: Other Provider preservative free, 3 yrs or older Payers Payer name Insurance type Covered republican ID Authorization(s) [facility] CI [id number] Social History Type Description Quantity Date Captured [...] Complete OB Ultrasound > 14 Ordered Weeks (65168) Date Type Problem Goal Intervention Status Start [...]
--- OUTSIDE RECORDS SUMMARY | 2017-08-23 06:19 | External Medical Summary | Continuity of Care Document ---
:1993 Author Organization [facility] Address [address] [place], [place] [address] Phone Care Team Providers Name Role Phone oRmana Maher MD Unavailable Unavailable Allergies, Adverse Reactions, [...] third trimester 28 weeks gestation of - Vomiting of , [...] third trimester 30 weeks gestation of - Herpes Simplex Virus Active Procedures Procedure Date OB Visit No Charge Results Test Name Date and Time Measure Units Reference Range Abnormal Flag Comments Unknown Advance Directives Directive Yes / No Effective Date File Name Unknown Encounters Encounter Practice Location Reason(s) Diagnoses Date Provider Care Team Description For Visit Members Gary [place] Encounter for Arlette Referring In Womens suprvsn of normal 8-201 Kaykay. Provider: Gilberto SUTTON, , third 8 700 Kaykay [address] [email or web address] weeks Medical Arlette L, 1522, gestation of [address], Romel Castro [place], 120, [place] [id number], [place] [facility] 120, [place] PAUL, tel:[phone] [facility] , . [id number]. tel: tel:[phone] Gary [place] Encounter for Arlette Referring In Womens suprvsn of normal 4-201 Kaykay. Provider: Gilberto SUTTON, , third 8 700 Kaykay [address] Box [email or web address] weeks Kriss Dobbs, 1522, gestation of [address], [address] [facility] Kriss [place], 120, [place] [id number], [place] [facility] 120, [place] PAUL, tel:[phone] [facility] , . [id number]. tel: tel:[phone] Gary [place] Other May- Arlette Referring In Womens Ultrasound malformation of 4-201 Kaykay. Provider: Gilberto SUTTON, placenta, third 8 700 Kaykay PO Box trimesterOther Medical Arlette L, 1522, antepartum Center [address] [place] [address], hemorrhage, third Romel Castro, [email or web address] weeks 120, [place] [id number], gestation of [place], Romel 120, [place] PAUL, tel:+ [phone] [place], , [place]. [id number]. tel: tel:[phone] Associates [place] Other Jorge L-1 Arlette Referring In Womens malformation of 7-201 Kaykay. Provider: Gilberto SUTTON, placenta, second 8 700 Kaykay PO Box trimesterEncounte Medical Arlette L, 1522, r for suprvsn of Center [address] [place], [place] [address]ta, normal , Romel Castro, second 120, Center [id number], [email or web address] weeks [facility] 120, [place] gestation of BEVERLY [place], tel:[phone] [place], , [place]. [id number]. tel: tel:[phone] Associates [place] Oth viral Dec-1 Arlette Referring In Womens diseases 8-201 Kaykay. Provider: Gilberto SUTTON, complicating 7 700 Kaykay [address] , second Medical Arlette L, 1522, trimesterEncntr Center [address] [place] [address], for suprvsn of Romel Castro, normal first 120, Center [id number], preg, second [facility] 120, [place] [email or web address] weeks [place] PAUL, tel:+[phone] gestation of [id number] [place], , [place]. [id number]. tel: tel:[phone] Gary [place] Encntr for Dec-1 Suki Referring In Womens Ultrasound suprvsn of normal 8-201 Alondra. Provider: Gilberto SUTTON, first preg, 7 700 Kaykay PO Box second Medical Arlette L, 1522, weeks Center [address] [place] [address], gestation of Romel Castro, 120, Center [id number], [facility], [place] PAUL, tel:[phone] [place], , [place]. [id number]. tel: tel:[phone] Associates [place] Other viral Nov-1 Arlette Referring In Womens diseases 3-201 Kaykay. Provider: Gilberto SUTTON, complicating 7 700 Kaykay [address] , first Medical Arlette L, 1522, trimesterEncntr Center 700 [place], for suprvsn of Romel Castro, normal first 120, Center [id number], preg, first [place], [facility] 120, [place] [id number] weeks [place] PAUL, tel:+[phone] gestation of [phone] [place], , [place]. [id number]. tel: tel: [phone] Associates [place] Other viral Oct-1 Arlette Referring In Womens diseases 7- Kaykay. Provider: Gilberto SUTTON, complicating 7 700 Kaykay [address] , first Medical Arlette L, 1522, trimesterEncntr Center [address] [place] [address], for suprvsn of Romel Castro, normal first 120, Center [id number], preg, first [place], [facility] 120, [place] trimester9 weeks [place] PAUL, tel:+2 gestation of [phone] [place], , [place]. [id number]. tel: tel: [phone] Associates [place] Vomiting of Sep-2 Sobbing In Womens , 5-201 Laith. Gilberto SUTTON, unspecified 7 700 [address] Medical [address], [place], [address] [id number], 120, [place], tel: [place], [address], [place]. tel: [phone] Associates [place] Vomiting of Sep-2 Suki In Womens , 5-201 Alondra. Gilberto SUTTON, unspecified 7 700 [address] Medical [address], [place] Dr Radha [facility], 120, [id number], [place], tel:[phone] , [place]. tel: [phone] Family History Family Member Diagnosis Age At Onset Mother Diabetes Maternal Grandmother Ovarian Cancer Maternal Grandmother Thyroid Disorder Maternal Grandmother Breast Cancer Mother Thyroid Disorder Maternal Grandfather Colon Cancer Immunizations Vaccine Date Status Comments Influenza, seasonal, injectable, completed Source: Other Provider preservative free, 3 yrs or older Payers Payer name Insurance type Covered libertarian ID Authorization(s) [facility] [id number] [employer] [place] [employer] - Medicaid [place] [id number] Social History Type Description Quantity Date Captured [...] Type Action Status Appointment Carissa Kolb BOOKED Appointment Carissa Kolb BOOKED Future Order: Radiology Order Ultrasound OB Follow-up ([id number]) Ordered Future Order: Radiology Order Complete OB Ultrasound > 14 Ordered Weeks (11431) Date Type Problem Goal Intervention Status Start [...]
--- OUTSIDE RECORDS SUMMARY | 2017-08-23 06:19 | External Medical Summary | Continuity of Care Document ---
:1993 Author Organization [facility] Care Team Providers Name Role Phone LAUREN FONSECA MD Unavailable Unavailable Insurance Providers Payer Name Policy Number Subscriber Name Relationship [facility] [id number] Raina Armstrong 18 Self / Same As Patient Advance Directives Directive Response Recorded Date/Time Advanced Directives No 11/04/15 8:20pm Chief Complaint and Reason for Visit Chief Complaint GI Complaint Reason for Visit Abdominal pain Gastritis Problems Active Problems Medical Problem Onset Date Status Abdominal pain 11/02/2012 Acute Acute urinary tract infection 12/23/2011 Acute Delivery normal 02/01/2012 Acute Delivery normal ~07/09/2013 Acute Gastritis ~11/04/2015 Acute Gastroenteritis Unknown Acute Headache Unknown Acute Inguinal bulge 11/25/2013 Acute Normal labor ~07/09/2013 Acute Smoker ~07/09/2013 Acute Medications Current Home Medications Medication Dose Units Route Directions Days/Qty Instructions Start Date [No] 11/26/13 Ondansetron Hcl 4 4 Mg ORAL Every 4HRS as 10 11/04/15 Mg needed for Nausea/Vomiting Past Home Medications Medication Directions Ordered Status Pnv Comb.no58/Iron Bisgly/Fa 1 Daily 12/23/11 Discontinued Each Capsule, 1 Cap Oral Ferrous Sulfate 27 Mg Tablet, 1 Daily 12/23/11 Discontinued Tab Oral Metoclopramide Hcl 10 Mg Tablet, Four Times Daily as needed 12/23/11 Discontinued 10 Mg Oral Cephalexin 500 Mg Capsule, 2 Cap Twice A Day 12/23/11 Discontinued Oral Ibuprofen 200 Mg Tab, 600 Mg Oral Every 6 Hours as needed 02/03/12 Discontinued Norethindrone 0.35 Mg Tablet, 0.35 Daily 02/03/12 Discontinued Mg Oral Acetaminophen/Hydrocodone Bitart 1 Every 4HRS as needed 11/03/12 Discontinued Each Tablet, 1 - 2 Tab Oral Vits W-Ca,Fe,Fa(<1MG) Daily 07/09/13 Discontinued 1 Each Tablet, 1 Each Oral Valacyclovir Hcl 500 Mg Tablet, Daily 07/09/13 Discontinued 500 Mg Oral Cyclobenzaprine Hcl 5 Mg Tablet, Bedtime as needed for Back 07/09/13 Discontinued 10 Mg Oral Pain Ibuprofen 200 Mg Tablet, 600 Mg Every 6 Hours as needed for 07/11/13 Discontinued Oral Cramps Social History Query Response Start Date Stop Date Smoking Status Light tobacco smoker 1-9 Hospital Discharge Instructions No hospital discharge instructions. Plan of Care Discharge Date 11/04/15 11:39pm Disposition 01 HOME OR SELF-CARE Condition at Discharge Stable Instructions/Education Provided Gastritis (ED) Diet for Ulcers and Gastritis (GEN) Acute Abdominal Pain (ED) Prescriptions See Medication Section Referrals LAUREN FONSECA MD - Additional Instructions/Education ED PAXTON if any worse. Take Pepcid 20mg twice daily. Take Prilosec 20mg once daily. Return for Gall Bladder Ultrasound tomorrow at 10am. Follow up with your doctor. [place] diet only - nothing greasy or spicy. Some of your test results may not be complete prior to your leaving the Emergency Department. The Emergency Department is not authorized to give test results over the phone. Please contact the doctor's office listed in this packet of information for your final results. Follow up with your primary care physician or return to the Emergency Department for worsening or worrisome symptoms. * Emergency Department phone number: [phone], x [phone]* MEDICAL RECORD If you need copies of your X-rays, call [phone]. If you need copies of your medical record, including lab results, a signed authorization for release of records will be required. A telephone call for release of Health Information is not allowed. BILLING Billing can sometimes be confusing and frustrating. To help avoid confusion in the future, please take a moment to acquaint yourself with the billing parties for services. SERVICE BILLING [facility] Emergency Room Services [facility] Physician Services [facility] X-rays [place] [facility] Patients will receive bills for services from the appropriate provider. If you have any questions about your [facility] bill, our staff will be happy to assist you. Please call [phone], and ask for the billing department. THANK YOU for choosing [facility] as your emergency care provider! Care Plan and Goals ~~Discharge Care Plan~~ Problem: Nausea, vomiting or Pain Goal: Decrease in nausea, vomiting or Pain Instructions: Encourage fluids approximately 6-8 glasses of water or noncarbonated fluids. Take medication(s) as directed. Follow home discharge instructions. Follow up with primary care physicians. Return tomorrow for Ultrasound of Gall Bladder at 10:00 AM. Nothing by mouth after midnight. Functional Status No functional status results. Allergies, Adverse Reactions, Alerts No known allergies. Immunizations Name Given Type Status Date Influenza Vaccine Received if Current 05/09/13 Historical Historical Vital Signs Acute Vital Signs Vital Response Date/Time Temperature (Fahrenheit) 97.9 11/04/2015 8:20pm Pulse 57 bpm 11/04/2015 11:44pm Respirations 18 11/04/2015 11:44pm Height 5 ft 7 in Weight 220 lb Body Mass Index 34.0 kg/m^2 Results Pending Laboratory Results Test Name Collection Date/Time Procedures Procedure Status Date Provider(s) US EXAM PELVIC COMPLETE Completed 11/02/15 Encounters Encounter Location Arrival/Admit Date Discharge/Depart Date Attending Provider Departed [place] 11/04/15 7:59pm 11/04/15 11:39pm [facility], Emergency Room [facility] PAULA Figueroa MD Registered [place] [facility] Recent Diagnosis
--- OUTSIDE RECORDS SUMMARY | 2017-08-23 06:19 | External Medical Summary | Continuity of Care Document ---
:1993 Author Organization [facility] Address [address] [place], [place] [id number] Phone Care Team Providers Name Role Phone [...] first trimester 13 weeks gestation of - Vomiting of , unspecified Vomiting of , unspecified Other viral diseases complicating - , first trimester Encntr for suprvsn of normal first - preg, first trimester 9 weeks gestation of - Herpes Simplex Virus Active Procedures Procedure Date OB Visit No Charge - MERCH[employer]ISING [employer]N Results Test Name Date and Time Measure Units Reference Range Abnormal Flag Comments Unknown Advance Directives Directive Yes / No Effective Date File Name Unknown Encounters Encounter Practice Location Reason(s) Diagnoses Date Provider Care Team Description For Visit Members [facility] [place] Other viral Arlette Referring In Womens diseases 3-201 Kaykay. Provider: Gilberto SUTTON, complicating 7 700 Kaykay [address], , first Medical [place] Dob[place], trimesterEncntr Center 700 [id number], for suprvsn of Dr [facility] normal first 120, Center tel:21 preg, first [place], [facility] 120, [address] [id number] [place] PAUL, weeks gestation [id number] [place], of , [place]. [id number]. tel: tel: [phone] Associates [place] Other viral Oct-1 Arlette Referring In Womens diseases 7-201 Kaykay. Provider: Gilberto SUTTON, complicating 7 700 Kaykay [address], , first Medical Arlette L, [place], [place], trimesterEncntr Center 700 [id number], for suprvsn of Dr [facility] normal first 120, Center tel:[phone] preg, first [place], [facility] 120, [address] trimester9 weeks [place] PAUL, gestation of [id number] [place], , [place]. [id number]. tel: tel: [phone] [facility] [place] Vomiting of Sep-2 Sobbing In Womens , 5- Laith. Gilberto SUTTON, unspecified 7 700 [address], [place], [place], Center [id number], [facility], Suite tel: 120, [address] [place], [address], [place]. tel: [phone] [facility] [place] Vomiting of Sep-2 Suki In Womens , 5-201 Alondra. Gilberto SUTTON, unspecified 7 700 [address], [place], [place], [place] [id number], [facility] 120, tel:[phone] [facility] [address] [place], [id number] , [place]. tel: [phone] Family History Family Member Diagnosis Age At Onset Mother Diabetes Maternal Grandmother Ovarian Cancer Maternal Grandmother Thyroid Disorder Maternal Grandmother Breast Cancer Mother Thyroid Disorder Maternal Grandfather Colon Cancer Immunizations Vaccine Date Status Comments Influenza, seasonal, injectable, completed Source: Other Provider preservative free, 3 yrs or older Payers Payer name Insurance type Covered democrat ID Authorization(s) [facility] [id number] [employer] [place] [employer] - Medicaid [place] [id number] Social History Type Description Quantity Date Captured Alcohol Use Details No Caffeine Use Details Unknown Tobacco Use Status Smoking Status Former smoker Vital Signs Date / Height Weight BMI Pulse Blood Temperature Respiratory Body Head BMI Time: Rate Pressure Rate Surface Circumference percentile Area 248.40 38.9 131/74 -2017 lbs 0 mm[Hg] 4:34 kg/m PM eter (2) Chief Complaint And Reason For Visit Unknown Chief Complaint And Reason For Visit Reason For Referral Reason For Referral Unknown Plan Of Care Date Type Action Status Appointment Raina Kolb BOOKED Appointment Raina Kolb BOOKED Date Type Problem [...]
--- OUTSIDE RECORDS SUMMARY | 2017-08-23 06:19 | External Medical Summary | Continuity of Care Document ---
:1993 Author Organization [facility] Address [address] [place], [place] [id number] Phone Care Team Providers Name Role Phone [...] Effective Dates (start - stop) Clinical Status Oth viral diseases complicating - , second trimester Encntr for suprvsn of normal first - preg, second trimester 19 weeks gestation of - Vomiting of , unspecified Vomiting of , unspecified Other viral diseases complicating - , first trimester Encntr for suprvsn of normal first - preg, first trimester 9 weeks gestation of - Other viral diseases complicating - , first trimester Encntr for suprvsn of normal first - preg, first trimester 13 weeks gestation of - Encntr for suprvsn [...] Team Description For Visit Members [facility] [place] Ot viral Dec-1 Arlette Referring In Womens diseases 8-201 Kaykay. Provider: Gilberto SUTTON, complicating 7 700 Kaykay [address] , Medical Arlette L, 1522, second Center 700 [place], trimesterEncntr Romel Castro, for suprvsn of 120, Center [id number], normal first Romel [place] 120, [place] preg, second [place] PAUL, tel:[phone] [id number] [place], weeks gestation , [place]. [id number]. of tel: tel:[phone] Gary [place] Encntr for Dec-1 Suki Referring In Womens Ultrasound suprvsn of 8-201 Alondra. Provider: Gilberto SUTTON, normal first 7 700 Kaykay PO [address] preg, second Medical Arlette L, 1522, [email or web address] Center 700 [place], weeks gestation Romel Castro, of 120, Center [id number], [place] [facility] 120, [place] PAUL, tel:[phone] [place], , [place]. [id number]. tel: tel:[phone] Gary [place] Other viral Nov-1 Arlette Referring In Womens diseases 3-201 Kaykay. Provider: Gilberto SUTTON, complicating 7 700 Kaykay [address] , first Medical Arlette L, 1522, trimesterEncntr Center [address] [place] [address], for suprvsn of Romel Castro, normal first 120, Center [id number], preg, first [place] Romel 120, [place] [email or web address] [place] PAUL, tel:[phone] weeks gestation [id number] [place], of , [place]. [id number]. tel: tel:[phone] Gary [place] Other viral Oct-1 Arlette Referring In Womens diseases 7-201 Kaykay. Provider: Gilberto SUTTON, complicating 7 700 Kaykay [address] , first Medical Arlette L, 1522, trimesterEncntr Center [address] [place] [address], for suprvsn of Romel Castro, normal first 120, Center [id number], preg, first [place], Romel 120, [place] trimester9 weeks [place] PAUL, tel: gestation of [place], , [place]. [id number]. tel: tel: [phone] Associates [place] Vomiting of Sep-2 Sobbing In Womens , Laith. [facility], unspecified 7 700 [address], [facility], [place], [address] [id number], 120, [place], [place]: [place], [address], [place]. tel: [phone] [facility] [place] Vomiting of Sep-2 Suki In Womens , Alondra. Health [place], unspecified 7 700 [address] Medical [address], [place] Radha, , [facility], 120, [id number], [place], [place], tel: [phone] , [place]. tel: [phone] Family History Family Member Diagnosis Age At Onset Mother Diabetes Maternal Grandmother Ovarian Cancer Maternal Grandmother Thyroid Disorder Maternal Grandmother Breast Cancer Mother Thyroid Disorder Maternal Grandfather Colon Cancer Immunizations Vaccine Date Status Comments Influenza, seasonal, injectable, completed Source: Other Provider preservative free, 3 yrs or older Payers Payer name Insurance type Covered constitution party ID Authorization(s) [facility] CI [id number] Social History Type Description Quantity Date Captured [...] Complete OB Ultrasound > 14 Ordered Weeks (53654) Date Type Problem Goal Intervention Status Start [...]
--- OUTSIDE RECORDS SUMMARY | 2017-08-23 06:19 | External Medical Summary | Continuity of Care Document ---
:1995 Author Organization [facility] Allergies Active Description Code Type Severity Reaction Onset Reported/ Identified Relationship Clinical to Patient Status Yes No Known 37603 3 N/A N/A Drug 0 Allergies Yes No Known F0019 Drug Unknown N/A 07/09/2013 Drug 53560 Aller Allergies gy Yes No Known NKMA N/A N/A 11/17/2013 Allergies Yes No Known NKMA N/A N/A 11/17/2013 Allergies Yes No Known Aller Unknown N/A 08/16/2017 Allergies gy Medications Medication Packaging Start Date Stop Date Route Dosage Sig Tablet 01/16/2017 DICLEGIS take 1 tablet by oral route every day in the morning, 1 tablet in the mid-afternoo n, and 2 tablets at bedtime Capsule 05/23/2017 05/31/2017 TAMIFLU take 1 capsule by oral route 2 times every day Tablet 07/05/2017 ACYCLOVIR take 1 tablet by ORAL route 3 times every day Problems Date Dx Attending Type Code Diagnosis Diagnosed By Coded 11/26/2013 RASHEED DOLAN, Ot 214.8 EVONNE D 11/26/2013 RASHEED DOLAN, Ot 305.1 EVONNE D 05/27/2014 ANA DOLAN, Ot 787.91 LUCILA D 11/17/2014 ANA DOLAN, Ot 787.91 LUCILA D 08/06/2015 ANA DOLAN, Ot V22.1 LUCILA D 08/06/2015 ANA DLOAN, Ot 787.91 LUCILA D 08/16/2015 MARIAN DOLAN, Ot K52.9 NONINFECTIVE LAUREN R GASTROENTERITIS AND COLITIS 08/16/2015 MARIAN DOLAN, Ot R51 HEADACHE LAUREN R 08/20/2015 ANA DOLAN, Ot V22.1 SUPERVIS [facility] NORMAL LUCILA D PREG 08/20/2015 ANA DOLAN, Ot 787.91 DIARRHEA LUCILA D 08/20/2015 MARIAN DOLAN, Ot K52.9 NONINFECTIVE LAUREN R GASTROENTERITIS AND COLITIS 08/20/2015 MARIAN DOLAN, Ot R51 HEADACHE LAUREN R 08/20/2015 MARIAN DOLAN, Ot K52.9 NONINFECTIVE LAUREN R GASTROENTERITIS AND COLITIS 08/20/2015 MARIAN DOLAN, Ot R51 HEADACHE LAUREN R 08/22/2015 ANA DOLAN, Ot V22.1 SUPERVIS OTH NORMAL LUCILA D PREG 08/22/2015 ANA DOLAN, Ot 787.91 DIARRHEA LUCILA D 08/22/2015 MARIAN DOLAN, Ot K52.9 NONINFECTIVE LAUREN R GASTROENTERITIS AND COLITIS 08/22/2015 MARIAN DOLAN, Ot R51 HEADACHE LAUREN R 11/04/2015 MARIAN DOLAN, Ot R10.31 RIGHT LOWER QUADRANT LAUREN R PAIN 11/04/2015 JEWELS DOLAN, Ot K29.70 GASTRITIS, PAULA P UNSPECIFIED, WITHOUT BLEEDING 11/04/2015 JEWELS DOLAN, Ot R10.31 RIGHT LOWER QUADRANT PAULA P PAIN 11/09/2015 JEWELS DOLAN, Ot K29.70 GASTRITIS, PAULA P UNSPECIFIED, WITHOUT BLEEDING 11/09/2015 JEWELS DOLAN, Ot R10.31 RIGHT LOWER QUADRANT PAULA P PAIN 11/10/2015 JEWELS DOLAN, Ot R10.11 RIGHT UPPER QUADRANT PAULA P PAIN 11/19/2015 MARIAN DOLAN, Ot R10.31 RIGHT LOWER QUADRANT LAUREN R PAIN 11/19/2015 MARIAN DOLAN, Ot R93.5 ABN FINDINGS ON DX LAUREN R IMAGING OF ABD REGION 12/04/2015 MARIAN DOLAN, Ot K52.9 NONINFECTIVE LAUREN R GASTROENTERITIS AND COLITIS 12/04/2015 MARIAN DOLAN, Ot R51 HEADACHE LAUREN R 12/04/2015 MARIAN DOLAN, Ot R10.31 RIGHT LOWER QUADRANT LAUREN R PAIN 12/04/2015 JEWELS DOLAN, Ot R10.11 RIGHT UPPER QUADRANT PAULA P PAIN 12/11/2015 MARIAN DOLAN, Ot R10.31 RIGHT LOWER QUADRANT LAUREN R PAIN 12/11/2015 MARIAN DOLAN, Ot R93.5 ABN FINDINGS ON DX LAUREN R IMAGING OF ABD REGION 03/18/2016 MARIAN DOLAN, Ot R10.31 RIGHT LOWER QUADRANT LAUREN R PAIN 03/18/2016 JEWELS DOLAN, Ot R10.11 RIGHT UPPER QUADRANT PAULA P PAIN 03/18/2016 MARIAN DOLAN, Ot R10.31 RIGHT LOWER QUADRANT LAUREN R PAIN 03/18/2016 MARIAN DOLAN, Ot R93.5 ABN FINDINGS ON DX LAUREN R IMAGING OF ABD REGION 01/16/2017 Laith Zarco W O21.9 Vomiting of L , unspecified 03/09/2017 Kaykay Chong W O98.511 Other viral diseases L complicating , first trimester 03/09/2017 Kaykay Chong Z34.01 Encntr for suprvsn of L normal first preg, first trimester 03/09/2017 Kaykay Chong W Z3A.09 9 weeks gestation of L 03/09/2017 Kaykay Chong W O98.511 Other viral diseases L complicating , first trimester 03/09/2017 Kaykay Chong W Z34.01 Encntr for suprvsn of L normal first preg, first trimester 03/09/2017 Kaykay Chong Z3A.09 9 weeks gestation of L 03/09/2017 Laith Zarco W O21.9 Vomiting of L , unspecified 03/09/2017 SobLaith bradley W O21.9 Vomiting of L , unspecified 03/09/2017 Laith Zarco W O21.9 Vomiting of L , unspecified 03/09/2017 Sobbing, Laith W O21.9 Vomiting of L , unspecified 04/10/2017 Alondra Cohn W Z34.02 Encntr for suprvsn of normal first preg, second trimester 04/10/2017 Alondra Cohn Z3A.18 18 weeks gestation of 05/16/2017 Alondra Cohn Z34.02 Encntr for suprvsn of normal first preg, second trimester 05/16/2017 Alondra Cohn Z3A.18 18 weeks gestation of 05/16/2017 Alondra Cohn Z34.02 Encntr for suprvsn of normal first preg, second trimester 05/16/2017 Alondra Cohn W Z3A.18 18 weeks gestation of 05/16/2017 Alondra Cohn Z34.02 Encntr for suprvsn of normal first preg, second trimester 05/16/2017 Alondra Cohn W Z3A.18 18 weeks gestation of 05/16/2017 Alondra Cohn W Z34.02 Encntr for suprvsn of normal first preg, second trimester 05/16/2017 Alondra Cohn Z3A.18 18 weeks gestation of 06/07/2017 Eli Chongnda W 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, third trimester 06/07/2017 ArletteKaykay W O46.8x3 Other antepartum L hemorrhage, third trimester 06/07/2017 Eli Chongnda eJnnifer Z3A.28 28 weeks gestation of L Procedures Code Description [place] [address] OB US < 01/16/2017 14 WKS, SINGLE FETUS 67784 01/16/2017 Office/outpatient visit,lanette lilly 95570 Venpnctr 02/07/2017 fngr/heel/ear stick routne 32081 OB Visit No 02/07/2017 Charge 99508 OB Panel 02/07/2017 With An HIV 60328 Cult, bactr, 02/07/2017 tia colonycnt, urine 46341 Infct 02/07/2017 antign, chlamydia trac, ampl 51229 Neisseria 02/07/2017 Gonorrhea, Amplified DNA OBPRE OB 02/07/2017 Prepayment Agreement 09215 Ultrasnd 04/10/2017 exam of preg uterus, compl 22788 Ultrasnd 06/07/2017 preg uterus, flwup/repeat Results There is no data. Encounters ACCT No. Visit Discharge Status Pt. Type Provider Facility Loc./Unit Complaint Date/Time [id number] 11/13/2015 11/13/2015 CLS Outpatien MARIAN Miles RAD RLQ PAIN 77 08:12:00 23:59:59 t , [facility] R [id number] 11/06/2015 11/06/2015 CLS Preadmit MARIAN Miles RAD 43 08:00:00 23:59:59 , [facility] R [id number] 11/05/2015 11/05/2015 CLS Outpatien JEWELS Miles RAD RT ABD 00 11:37:00 23:59:59 maddy DOLAN, [facility] PAIN PAULA P [id number] 11/04/2015 11/04/2015 DIS Emergency NEOI Miles ED 44 19:59:00 23:39:00 , [facility] [id number] 11/02/2015 11/02/2015 CLS Outpatien MARIAN Miles RAD RLQ PAIN W 92 10:59:00 23:59:59 [id number] 08/06/2015 08/06/2015 CLS Outpatien MARIAN Miles MHUC 58 11:25:00 23:59:59 t , [facility] R [id number] 11/25/2013 11/26/2013 DIS Outpatien FETSCH Miles ASC 29 23:10:00 12:05:00 t , [facility] [id number] 07/09/2013 07/11/2013 DIS Inpatient 56 05:49:00 19:10:00 [id number] 04/12/2013 04/12/2013 CLS Outpatien OVERHOLT Jd LAB 05 12:47:00 23:59:59 t , [facility] [id number] 02/19/2013 02/19/2013 CLS Outpatien OVERHOLT Miles RAD 19 08:54:00 23:59:59 t , [facility] [id number] 08/16/2017 08/16/2017 CLS Outpatien Arlette, 15:50:00 23:59:59 t Kaykay L [id number] 08/09/2017 08/09/2017 CLS Outpatien Arlette, 16:00:00 23:59:59 t Kaykay L [id number] 08/02/2017 08/02/2017 CLS Outpatien Arlette, 16:00:00 23:59:59 t Kaykay L [id number] 2017 2017 CLS Outpatien Arlette, 16:15:00 23:59:59 t Kaykay L [id number] 07/05/2017 07/05/2017 CLS Outpatien Arlette, 16:15:00 23:59:59 t Kaykay L [id number] 06/21/2017 06/21/2017 CLS Outpatien Arlette, 16:15:00 23:59:59 t Kaykay L [id number] 06/07/2017 06/07/2017 CLS Outpatien Arlette, 16:15:00 23:59:59 t Kaykay L [id number] 06/07/2017 06/07/2017 CLS Outpatien Arlette, 15:45:00 23:59:59 t Kaykay L [id number] 05/25/2017 05/25/2017 CLS Outpatien Arlette, 15:09:00 23:59:59 t Kaykay L [id number] 05/23/2017 05/23/2017 CLS Outpatien Arlette, 11:34:00 23:59:59 t Kaykay L [id number] 05/10/2017 05/10/2017 CLS Outpatien Arlette, 14:50:00 23:59:59 t Kaykay L [id number] 04/12/2017 04/12/2017 CLS Outpatien Arlette, 08:47:00 23:59:59 t Kaykay L [id number] 04/10/2017 04/10/2017 CLS Outpatien Arlette, 16:00:00 23:59:59 t Kaykay L [id number] 04/10/2017 04/10/2017 CLS Outpatien Suki, 15:45:00 23:59:59 t Alondra [id number] 04/06/2017 04/06/2017 CLS Outpatien Arlette, 14:22:00 23:59:59 t Kaykay L [id number] 03/06/2017 03/06/2017 CLS Outpatien Arlette, 16:20:00 23:59:59 t Kaykay L [id number] 02/07/2017 02/07/2017 CLS Outpatien Arlette, 10:15:00 23:59:59 t Kaykay L [id number] 01/16/2017 01/16/2017 CLS Outpatien Sobbing, 09:55:00 23:59:59 t Laith L [id number] 01/16/2017 01/16/2017 CLS Outpatien Suki, 09:15:00 23:59:59 t Alondra [id number] 08/23/2017 PEN Preadmit Induction 04 00:00:00 [id number] 03/31/2015 Document 68 10:27:00 Registrat ion [id number] 05/08/2014 Document 07 13:06:00 Registrat ion
--- OUTSIDE RECORDS SUMMARY | 2017-08-23 06:19 | External Medical Summary | Continuity of Care Document ---
:1995 Author Organization [facility] Address [address] [place], [place] [id number] Phone Care Team Providers Name Role Phone [...] suprvsn of normal - , third trimester 34 weeks gestation of - Vomiting of , [...] third trimester 30 weeks gestation of - Encounter for suprvsn of normal - , third trimester 36 weeks gestation of - Encounter for suprvsn [...] Arlette Referring In Womens suprvsn of normal 1-201 Kaykay. Provider: [facility], , third 8 700 Kaykay [address] [email or web address] weeks Medical Arlette L, 1522, gestation of Center [address] [place] [address], Romel Castro, 120, [place] [id number], Vance [facility] 120, Vance [place], tel:[phone] [place], [id number] , . [id number]. tel: tel:[phone] Gary [place] Encounter for Arlette Referring In Womens suprvsn of normal 8-201 Kaykay. Provider: [facility], , third 8 700 Kaykay [address] [email or web address] weeks Medical Arlette L, 1522, gestation of Center [address] [place], Romel Castro, 120, [place] [id number], [place] [facility] 120, [place], tel:[phone] [place], , [place]. [id number]. tel: tel:[phone] Gary [place] Encounter for Mar-1 Arlette Referring In Womens suprvsn of normal 4-201 Kaykay. Provider: [facility], , third 8 700 Kaykay [address] Box [email or web address] weeks Medical Arlette L, 1522, gestation of Center [address] [place] [address], , Romel Monterroso [place], 120, Center [id number], Vance, [facility] 120, [place]ance [place], tel:[phone] [place], , [place]. [id number]. tel: tel:[phone] Gary [place] Encounter for Feb-2 Arlette Referring In Womens suprvsn of normal 8-201 Kaykay. Provider: Gilberto SUTTON, , third 8 700 Kaykay PO Box weeks Medical Arlette Dobbs, 1522, gestation of Center [address] [place] [address], Romel Castro, 120, Center [id number], [place], [facility] 120, [place], tel:[phone] [place], , [place]. [id number]. tel: tel:[phone] Gary [place] Encounter for Feb-1 Arlette Referring In Womens suprvsn of normal 4-201 Kaykay. Provider: Gilberto SUTTON, , third 8 700 Kaykay PO Box [email or web address] weeks Medical Arlette Dobbs, 1522, gestation of Center [address] [place] [address], Romel Castro [place], 120, Center [id number], V[place], [facility] 120, [place], tel:[phone] [place], , [place]. [id number]. tel: tel:[phone] Gary [place] Other Feb-1 Arlette Referring In Womens Ultrasound malformation of 4-201 Kaykay. Provider: Gilberto SUTTON, placenta, third 8 700 Kaykay PO Box trimesterOther Medical Arlette L, 1522, antepartum Center [address] [place] [address], hemorrhage, third Romel Castro, [email or web address] weeks 120, Center [id number], gestation of [place] [facility] 120, [place], tel:[phone] [place], , [place]. [id number]. tel: tel:[phone] Gary [place] Other Jorge L-1 Arlette Referring In Womens malformation of 7-201 Kaykay. Provider: Gilberto SUTTON, placenta, second 8 700 Kaykay PO Box trimesterEncounte Medical Arlette L, 1522, r for suprvsn of Center [address] [place] [address], normal , Romel Castro, second 120, Center [id number], [email or web address] weeks Vance [facility] 120, [place] gestation of BEVERLY [place], tel:+ [phone] [place], , [place]. [id number]. tel: tel:[phone] Gary [place] Oth viral Dec-1 Arlette Referring In Womens diseases 8-201 Kaykay. Provider: Gilberto SUTTON, complicating 7 700 Kaykay PO Box , second Medical Arlette L, 1522, trimesterEncntr Center [address] [place] [address], for suprvsn of Romel Castro, normal first 120, Center [id number], preg, second Vance [facility] 120, [place] [email or web address] weeks Vance PAUL, tel:[phone] gestation of [phone] [place], , [place]. [id number]. tel: tel:[phone] Gary [place] Encntr for Dec-1 Suki Referring In Womens Ultrasound suprvsn of normal 8-201 Alondra. Provider: Gilberto SUTTON, first preg, 7 700 Kaykay PO Box second Medical Arlette L, 1522, [email or web address] weeks Center [address] [place] [address], gestation of Romel Castro, 120, Center [id number], [place] [facility] 120, [place] BEVERLY [place], tel:[phone] [place], , [place]. [id number]. tel: tel:[phone] Gary [place] Other viral Nov-1 Arlette Referring In Womens diseases 3-201 Kaykay. Provider: Gilberto SUTTON, complicating 7 700 Kaykay PO Box , first Medical Arlette L, 1522, trimesterEncntr Center [address] [place] [address], for suprvsn of Romel Castro, normal first 120, Center , preg, [facility], [place] [email or web address] weeks Vance PAUL, tel:[phone] gestation of [phone] [place], , [place]. [id number]. tel: tel:+ [phone] [facility] Other viral Oct- Arlette Referring In Womens diseases Kaykay. Provider: Gilberto SUTTON, complicating 7 700 Kaykay PO Box , first Medical Arlette L, 1522, trimesterEncntr Center [address] [place] [address], for suprvsn of Romel Castro [place], normal first 120, Center [id number], preg, first [facility] 120, [place] trimester9 weeks Vance PAUL, tel:[phone] gestation of [phone] [place], , [place]. [id number]. tel: tel:+ [phone] [facility] Vomiting of Sep-2 Sobbing In Womens , Laith. Gilberto SUTTON, unspecified 7 700 PO [address] Medical [address], [place], [address] , [address], [place], tel: [place], [address], [place]. tel: [phone] [facility] Vomiting of Sep-2 Suki In Womens , Alondra. Gilberto SUTTON, unspecified 7 700 PO [address] Medical [address], [place] [address] Radha [facility] [place], 120, [id number], [place], tel:[phone] , [place]. tel: [phone] Family History Family Member Diagnosis Age At Onset Mother Diabetes Maternal Grandmother Ovarian Cancer Maternal Grandmother Thyroid Disorder Maternal Grandmother Breast Cancer Mother Thyroid Disorder Maternal Grandfather Colon Cancer Immunizations Vaccine Date Status Comments Tdap completed Source: New Immunization Record Influenza, seasonal, injectable, completed Source: Other Provider preservative free, 3 yrs or older Payers Payer name Insurance type Covered green party ID Authorization(s) [facility] [id number] [employer] [place] [employer] - Medicaid [place] [id number] [facility] [id number] [employer] [place] [employer] [place] Medicaid [place] [id number] Social History Type Description Quantity Date Captured [...] Care Date Type Action Status Appointment Raina Armstrong BOOKED Appointment Raina Armstrong BOOKED Future Order: Radiology Order Ultrasound OB Follow-up ([id number]) Ordered Future Order: Radiology Order Complete OB Ultrasound > 14 Ordered Weeks ([id number]) Date Type Problem Goal Intervention Status Start [...]
[2017-08-23 06:49] VITALS: BMI 40.5
[2017-08-23] MEDS: OXYTOCIN DRIP 30 UNIT/500 ML ML IV PRN (06:54)
[2017-08-23] MEDS: D5LR 1,000 ML IV PRN ×2 (06:54→16:55)
[2017-08-23] MEDS: LR 1,000 ML IV PRN ×3 (06:54→19:10)
[2017-08-23] MEDS ORDERED: NALOXONE 0.4 MG/ML INJECTION IVP PRN (09:56)
[2017-08-23] MEDS ORDERED: ROPIVACAINE 1% 10MG/ML INJ 200 MG, SUFentanil 50 MCG in NS 100 ML EPI PRN (09:56)
[2017-08-23] MEDS ORDERED: DiphenhydrAMINE 50 MG/ML INJECTION IVP PRN (09:56)
--- NOTE | 2017-08-23 09:56 | Anesthesia Preoperative Report ---
Anesthesia Epidural/Spinal Rec - Date and Time Date: 08/23/17 Procedure: Labor Epidural Plan: Epidural - Vital Signs Vital Signs: Temperature 97.9 F 08/23/17 06:44 Pulse Rate 114 H 08/23/17 06:44 Respiratory Rate 20 08/23/17 06:44 Blood Pressure 123/72 08/23/17 06:44 Pulse Oximetry 97 08/23/17 06:44 /Para: P:2 - Medictaions & Allergies Inpatient Medications: Current Medications Acetaminophen (Tylenol) 500 - 1,000 mg PO Q4H PRN PRN Reason: Pain Al Hydroxide/Mg Hydroxide (Maalox Plus) 30 ml PO Q3H PRN PRN Reason: Indigestion Calcium Carbonate (Tums) 500 - 1,000 mg PO Q2H PRN PRN Reason: Indigestion Carboprost Tromethamine (Hemabate) 250 mcg IM O PRN PRN Reason: .Downtime Dextrose/Lactated Ringer's (Dextrose 5%-Lactated Ringers) 1,000 mls @ 125 mls/ hr IV .Q8H PRN PRN Reason: Labor Last Admin: 08/23/17 06:54 Dose: 125 mls/hr Lactated Ringer's (Lactated Ringers) 1,000 mls @ 999 mls/hr IV .Q1H1M PRN Last Admin: 08/23/17 06:54 Dose: 999 mls/hr Oxytocin (Pitocin Drip) 30 unit in 500 mls @ 2 mls/hr IV .Q24H PRN; Protocol PRN Reason: Induction/Augmentation Last Admin: 08/23/17 06:54 Dose: 2 mls/hr Lidocaine HCl (Xylocaine-Mpf 1% Vial) 0.2 mg ID O PRN PRN Reason: IV Start Methylergonovine Maleate (Methergine) 0.2 mg IM O PRN Misoprostol (Cytotec) 800 mcg NM ONCE PRN Allergies/Adverse Reactions: Allergies Allergy/AdvReac Type Severity Reaction Status Date / Time No Known Allergies Allergy Verified 08/23/17 06:55 - Home Medications Home Medications: Home Medications Medication Instructions Recorded Confirmed Type Acyclovir [Acyclovir] 400 mg PO TID 08/23/17 08/23/17 History Pnv No.103/Folic/Om3s/Fish Oil 1 tab PO CHEW DAILY 08/23/17 08/23/17 History [ Gummies] - Medical History Respiratory: DENIES: Asthma, Bronchitis, Chronic Obstructive Pulmonary Disease (COPD), Dyspnea, Orthopnea, Pulmonary Embolism, Pneumonia, Upper Respiratory Infection, Pulmonary Edema, Sleep Apnea, Tuberculosis, Other Cardiovascular: DENIES: Abnormal EKG, Angina, Arrhythmia, Congestive Heart Failure, Coronary Artery Disease, Heart Murmur, Hypertension, Hypotension, High Cholesterol, Myocardial Infarction, Rheumatic Fever, Valvular Heart Disease, Other Gastrointestional: Reports: Gastroesophageal Reflux Disease (with ), Ulcer (hx of; no meds now) Neuro/Musculoskeletal: Denies: Back Problems, Cerebrovascular Accident, Depression, Headaches, Loss of Consciousness, Muscle Weakness, Neuromuscular Disorder, Paralysis, Paresthesia, Syncope, Seizures, Other Renal/Endocrine: DENIES: Diabetes Mellitus Type 1, Diabetes Mellitus Type 2, Renal Failure, Dialysis, Thyroid Disease, Weight Loss, Weight Gain, Other Other History: Reports: Now - Surgical History Reproductive Surgery/Treatment: DENIES: Section Anesthesia Reactions: None Hx Family Anesthesia Reaction: No History of Motion Sickness: No - Social History Smoking Status: Former smoker - Pertinent Findings Lab Data: CBC and BMP 08/23/17 06:38 - Physical Exam Respiratory Exam: lungs clear, bilateral breath sounds equal Cardiovascular Exam: regular rate and rhythm, no murmur - Airway Assessment Mallampati Score: II TMD: 3 Fingerbreadths Neck Extension: good Overall Assessment: may be difficult intubation - ASA ASA Score: 2 - Discussion Discussion: Discussed risks/options/alternatives of anesthesia and questions answered. Patient consents. Nursing pain assessment noted. Anesthesia Discussion: spouse Attestation Statement: Prior to the delivery of any anesthetic medication, I examined the patient, developed the plan, obtained the patient's consent and discussed the risk and benefits of the procedure with the patient/guardian.
[2017-08-23] MEDS: ONDANSETRON 4 MG/2 ML INJECTION IVP PRN ×2 (12:32→19:26)
[2017-08-24] MEDS: ONDANSETRON 4 MG/2 ML INJECTION IVP PRN (03:12)
[2017-08-24] MEDS: OXYTOCIN DRIP 30 UNIT/500 ML ML IV PRN (04:04)
[2017-08-24] MEDS: D5LR 1,000 ML IV PRN (04:06)
[2017-08-24] MEDS ORDERED: DiphenhydrAMINE 25 MG CAPSULE PO PRN (06:11)
[2017-08-24] MEDS ORDERED: HYDROCORTISONE 2.5% CREAM 30gm RECTALLY PRN (06:11)
[2017-08-24] MEDS ORDERED: MAG-AL + SIM ORAL LIQUID 30ml PO PRN (06:11)
[2017-08-24] MEDS ORDERED: ACETAMINOPHEN 500 MG TABLET PO PRN (06:11)
[2017-08-24] MEDS ORDERED: CALCIUM CARBONATE Chewable 500mg TABLET PO PRN (06:11)
[2017-08-24] MEDS ORDERED: HYDROCODONE/APAP 5mg/325mg TABLET PO PRN (06:11)
[2017-08-24] MEDS: IBUPROFEN 800 MG TABLET PO SCH ×2 (06:57→15:37)
--- NOTE | 2017-08-24 10:22 | Labor and Delivery Note ---
DATE OF DELIVERY: 08/24/2017. She was admitted on 08/23/2017. DELIVERY NOTE Ms. Armstrong progressed very slowly in first stage of labor. She began to push at the complete and +2 presentation. She pushed with excellent effort. After a few moments she delivered the head in the OA presentation. There was a compound presentation with baby's left hand up near chin. Baby was bulb suctioned on the perineum. Baby was in the OA presentation but originally was left OT. Baby was bulb suctioned on the perineum. There was no nuchal cord. With a further push she delivered the baby in total. Baby was then further bulb suctioned and placed on mother's abdomen. After a little over 2 minutes the cord was doubly clamped and it was then cut by the baby's father, Clayton. This is a liveborn male. He had Apgars of 8/9 and weighed 6 pounds 12 ounces. After a few moments the placenta delivered spontaneously, intact. It had a normal configuration and a normal-appearing three-vessel cord. Perineum was intact. There were no lacerations. Total blood loss was approximately 300 mL. At the time of this dictation mother and baby are doing well. [facility]
--- NOTE | 2017-08-24 11:10 | Anesthesia Postoperative Note ---
- Date and Time Date: 08/24/17 Time: 11:10 - Status Patient Participated in Evaluation: Patient Participated in Person Vital Signs: Temperature 97.9 F 08/23/17 06:44 Pulse Rate 114 H 08/23/17 06:44 Respiratory Rate 20 08/23/17 06:44 Blood Pressure 123/72 08/23/17 06:44 Pulse Oximetry 98 08/23/17 22:47 Respiratory Function: Airway Patent Cardiovascular Function: Regular Pulse EKG: Sinus Rhythm Mental Status: Alert and Oriented Pain Intensity: 0 Hydration: Taking PO Fluids Complications During Recover: None Apparent - Follow-Up Instructions Instructions: Per Surgeon
[2017-08-24] MEDS: PRENATAL VITAMIN TABLET PO SCH (13:55)
[2017-08-24] MEDS: DOCUSATE CALCIUM 240 MG CAPSULE PO SCH (13:55)
[2017-08-25] MEDS: IBUPROFEN 800 MG TABLET PO SCH ×2 (02:12→10:33)
[2017-08-25 05:22] VITALS: RESP 18
[2017-08-25] MEDS: DOCUSATE CALCIUM 240 MG CAPSULE PO SCH (09:06)
[2017-08-25] MEDS: PRENATAL VITAMIN TABLET PO SCH (10:33)
[2017-08-25 13:14] VITALS: BP 130/72; PULSE 79; TEMP 98.1; O2SAT 98
== END 2017-08-25 12:47 | disposition home or self-care (01) | DRG 774 ==
LOC: MC 06:12
PROVIDERS: ADMIT Obstetrics & Gynecology; ATTEND Obstetrics & Gynecology